=== PATIENT | male | born 1980 | race Caucasian/White ===

== ENCOUNTER 2016-08-28 20:11 | Emergency (ER) | payer OTHER ==
[~2016-08-28] VITALS: Ht 170.2 cm; Wt 104.0 kg
[2016-08-29 03:00] VITALS: BP 120/79
== END 2016-08-29 03:00 | disposition home or self-care (01) ==
LOC: ER 20:11
DX: H10.023 Other mucopurulent conjunctivitis, bilateral (principal); R03.0 Elevated blood-pressure reading, without diagnosis of hypertension; J02.9 Acute pharyngitis, unspecified
CPT/HCPCS: 99283